=== PATIENT | male | born 1935 | race Caucasian/White ===

== ENCOUNTER 2016-12-21 08:49 | Day surgery (SDC) | payer MEDICARE ==
[~2016-12-21] VITALS: Ht 177.8 cm; Wt 72.7 kg
[2016-12-21] MEDS ORDERED: SODIUM CHLORIDE 0.9% 1,000 ML IV SCH (09:30)
[2016-12-21] MEDS ORDERED: HYDR50TA3 PO (09:45)
[2016-12-21] MEDS ORDERED: RIVA20TA PO (09:45)
[2016-12-21] MEDS ORDERED: QUIN40TA7 PO (09:45)
[2016-12-21] MEDS ORDERED: METO50TA82 PO (09:45)
[2016-12-21] MEDS ORDERED: AMLO5TAB2 PO (09:45)
[2016-12-21] MEDS ORDERED: MAGN250T8 PO (09:45)
[2016-12-21] MEDS ORDERED: POTA20TA6 PO (09:45)
[2016-12-21] MEDS ORDERED: PROPOFOL 10 MG/ML, 20ML ONE (10:17)
== END 2016-12-21 12:15 | disposition home or self-care (01) ==
LOC: CACL 08:49
PROVIDERS: ATTEND Internal Medicine Cardiovascular Disease
DX: I34.0 Nonrheumatic mitral (valve) insufficiency (principal); I35.1 Nonrheumatic aortic (valve) insufficiency; I10 Essential (primary) hypertension; I48.1 Persistent atrial fibrillation
CPT/HCPCS: 93312; 93321; 93325; J2704

== ENCOUNTER 2017-01-14 10:02 | Day surgery (SDC) | payer MEDICARE ==
[~2017-01-14] VITALS: Ht 177.8 cm; Wt 72.7 kg
[~2017-01-14 10:02] MED LIST: AMLO5TAB2 PO; HYDR50TA3 PO; MAGN250T8 PO; METO50TA82 PO; POTA20TA6 PO; QUIN40TA7 PO; RIVA20TA PO
[2017-01-14] MEDS ORDERED: SODIUM CHLORIDE 0.9% 1,000 ML IV ONE (10:52)
[2017-01-14 10:57] VITALS: BP 144/48
[2017-01-14] MEDS ORDERED: PLEASE ENTER HEIGHT AND WEIGHT MC SCH (11:30)
[2017-01-14] MEDS ORDERED: TICAGRELOR 90 MG TABLET ONE (12:11)
[2017-01-14] MEDS ORDERED: VERAPAMIL 2.5 MG/ML, 2ML ONE (12:11)
[2017-01-14] MEDS ORDERED: MIDAZOLAM 1 MG/ML, 5ML ONE (12:11)
[2017-01-14] MEDS ORDERED: NITROGLYCERIN 5 MG/ML, 10ML ONE (12:11)
[2017-01-14] MEDS ORDERED: FENTANYL PF 100 MCG/2ML ONE (12:11)
[2017-01-14] MEDS ORDERED: HEPARIN 1,000 UNITS/ML, 10ML ONE (12:12)
[2017-01-14] MEDS ORDERED: LIDOCAINE 2%, 20ML ONE (12:12)
[2017-01-14] MEDS ORDERED: BIVALIRUDIN 250 MG ONE (12:12)
[2017-01-14] MEDS ORDERED: SODIUM CHLORIDE 0.9% 1,000 ML IV SCH (13:05)
== END 2017-01-14 16:01 | disposition home or self-care (01) ==
LOC: CACL 10:02
PROVIDERS: ATTEND Internal Medicine Cardiovascular Disease
DX: I48.1 Persistent atrial fibrillation (principal); I34.0 Nonrheumatic mitral (valve) insufficiency; I10 Essential (primary) hypertension
CPT/HCPCS: 93458; 93567; C1894; J1644; J2250; J3010; J3490; Q9967; J0583